=== PATIENT | female | born 1955 | race Caucasian/White ===

== ENCOUNTER 2016-12-21 11:47 | Day surgery (SDC) | payer BC, OTHER ==
[2016-12-18 15:27] VITALS: BMI 20.9
[2016-12-21] MEDS ORDERED: MIDAZOLAM HCL 2 MG/2 ML SINGLE DOSE VIAL ONE ×2 (12:24→13:24)
[2016-12-21] MEDS ORDERED: BUPIVACAINE HCL/PF 0.5% (5MG/ML) 10 ML VIAL ONE (12:56)
[2016-12-21] MEDS ORDERED: ONDANSETRON 4 MG/2 ML VIAL IVPUSH PRN (13:02)
[2016-12-21] MEDS ORDERED: oxyCODONE HCL 5 MG TABLET PO PRN (13:02)
[2016-12-21] MEDS ORDERED: ceFAZolin SODIUM 1 GM VIAL IVPB ONE (13:13)
[2016-12-21] MEDS ORDERED: LACTATED RINGERS SOLUTION 1,000 ML IV SCH (13:15)
[2016-12-21] MEDS ORDERED: ceFAZolin SODIUM 1 GM VIAL ONE (13:19)
[2016-12-21] MEDS ORDERED: BUPIVACAINE HCL/PF 0.5% (5MG/ML) 10 ML VIAL IJ ONE (13:40)
[2016-12-21] MEDS ORDERED: LIDOCAINE HCL 0.5% EPINEPHRINE 1:200,000 50 ML VIAL IJ ONE (13:40)
[2016-12-21] MEDS ORDERED: PROPOFOL 20 ML ONE ×3 (13:41→14:30)
[2016-12-21 16:26] VITALS: TEMP 98.9
--- NOTE | 2016-12-21 17:09 | HP ---
Admitting History and Physical - Primary Care Physician PCP: Dani Coles (Panel Instrument Repairer) - Admission Chief Complaint: Painful toes [id number], 3rd and 4th History of Present Illness: Patient has painful hammertoes that limit ability to wear shoes and has asked for surgical correction to allow her feet to fit in shoes orther than crocks. History Source: Medical Record (Medical History deferred to PCP) - Past Medical History Musculoskeletal: Yes: Other (Bilateral 3rd and 4th toes are hammered, Hallux is abducted on the right and hammered on the left.) - Smoking History Smoking history: Current every day smoker Have you smoked in the past 12 months: Yes Aproximately how many cigarettes per day: 5 - Alcohol/Substance Use Hx Alcohol Use: No Home Medications - Allergies Allergies/Adverse Reactions: Allergies Allergy/AdvReac Type Severity Reaction Status Date / Time No Known Allergies Allergy Verified 12/18/16 15:26 - Home Medications Home Medications: Ambulatory Orders Duloxetine HCl [Cymbalta] 20 mg PO BID 12/18/16 Olanzapine [Zyprexa] 2.5 mg PO DAILY 12/18/16 Paroxetine HCl [Paxil] 30 mg PO BID 12/18/16 Physical Examination Vital Signs: Vital Signs Temperature 98.9 F 12/21/16 16:00 Pulse Rate 72 12/21/16 16:10 Respiratory Rate 18 12/21/16 16:10 Blood Pressure 138/59 12/21/16 16:10 O2 Sat by Pulse Oximetry (%) 100 12/21/16 15:45 Assessment/Plan Assessment Right bunion with hallux valgus Right 3rd and 4th hammertoes Left hallux hammertoe with extensor tendon contracture Left 3rd and 4th hammertoes Plan Right Barker Arthroplasty Right 3rd and 4th arthroplasty Left Hallux interphalangeal joint arthroplasty with extensor tendon lengthening Left 3rd and 4th toe arthroplasty
[2016-12-21 19:55] VITALS: BP 125/74; PULSE 78
--- NOTE | 2016-12-22 10:47 | OP ---
DATE OF OPERATION: 12/21/2016 SURGEON: Dani Coles DPM PREOPERATIVE DIAGNOSES: 1. Right bunion with hallux valgus. 2. Right third hammertoe. 3. Right fourth hammertoe. 4. Left hallux hammertoe. 5. 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 6. Left third hammertoe. 7. Left fourth hammertoe. PROCEDURES: 1. Right Barker bunionectomy. 2. Arthroplasty of the right third toe. 3. Arthroplasty of the right fourth toe. 4. Extensor tendon lengthening of the long extensor tendon, extensor hallucis longus. 5. Arthroplasty of the interphalangeal joint, right hallux. 6. Arthroplasty of the proximal interphalangeal joint, left third toe. 7. Arthroplasty of the left fourth toe proximal interphalangeal joint. DESCRIPTION OF PROCEDURE: Under fractional anesthesia and surgical scrub with Betadine scrub and solution x2, the patient was draped using sterile technique. An ankle tourniquet was inflated around the right ankle for 73 minutes. Inspection of the right foot showed the hallux valgus and hammertoes of the third and fourth. Using a number 15 blade, a linear longitudinal incision was made on the dorsal medial aspect of the right foot over the first metatarsophalangeal joint. The incision was deepened through fascia and retracted. The long extensor tendon was identified and lengthened by a Z-plasty. It was sutured with 4-0 Vicryl. A longitudinal capsular incision was made, and the joint capsule was reflected from the medial and lateral and dorsal surfaces of the first metatarsophalangeal joint. The base of the proximal phalanx of the hallux was resected using a bone-cutting saw at the flare and removed. The medial eminence of the first metatarsal head was resected in a similar fashion, and the bone was rasped smooth to avoid any sharp edges. The wound was irrigated with sterile saline, and then, medial and lateral joint capsules were cut into flaps, sutured to the plantar joint capsule, and the joint capsule was closed using 2-0 Vicryl suture to completely enclose the first metatarsal head and joint capsule. Then, the remaining joint capsule at the base of the proximal phalanx was sutured into the joint capsular apparatus using similar technique. The superficial fascia was reapproximated and closed with 3-0 Vicryl, and then, skin was reapproximated and closed using 4-0 nylon sutures. The hallux was restored to normal anatomic position. Continuing on the right foot, double semi-elliptical incisions were made on the dorsal aspect of the right third and fourth toes, longitudinal incisions. These incisions were deepened through fascia and retracted, and a tear-drop skin wedge was removed from each toe. The proximal interphalangeal joint was transversely incised, and extensor tendon and joint capsule were reflected from the joint. The head of the proximal phalanx was delivered into the wound in both toes and resected using bone-cutting forceps. The wounds were irrigated with sterile saline, and then, extensor tendon and joint capsules were reapproximated and sutured with 4-0 Vicryl suture. Skin was reapproximated and closed using 4-0 nylon simple interrupted sutures in both right third and fourth toes. The ankle tourniquet was deflated after 73 minutes of inflation, and the dry sterile dressing was applied to the right foot. Now, attention was directed to the left foot. Using a number 15 blade, the longitudinal incision was made on the dorsal aspect of the left hallux, and the skin and subcutaneous tissues were reflected, exposing a long extensor tendon and the flexed interphalangeal joint of the left hallux. Using a 15 blade, a Z-plasty lengthening was performed on the long extensor tendon, reducing the contracture of the extensor hallucis longus. Then, a transverse capsular incision was made at the joint in the hallux, and using a bone saw, the head of the proximal phalanx was resected from the left hallux. The wound was irrigated with sterile saline, and the joint capsule was reapproximated and sutured with 4-0 Vicryl. Then, subcutaneous tissues were reapproximated and closed in similar fashion, and skin, of course, was reapproximated and closed with 4-0 nylon sutures. Attention was then directed to the left third and fourth toes that are hammered. Double semi-elliptical incisions were made on the dorsal aspect of these toes, and these tear-drop incisions were deepened through fascia and skin wedges were removed. The proximal interphalangeal joints were transversely incised and the heads of the proximal phalanges were delivered into the wounds and they were resected using bone-cutting forceps. The wounds were irrigated with sterile saline, and then, the joint capsule and extensor tendons were repaired with 4-0 Vicryl. Skin was then reapproximated and closed with 4-0 nylon simple interrupted sutures in the left third and fourth toes. Dry sterile dressings were applied to the left foot as they were to the right. The patient tolerated the surgical procedure well and left the operating room stable, alert, awake, and in no pain. PETEY FISCHER/[id number]
--- NOTE | 2016-12-25 14:15 | PATH ---
Surgical Pathology Report Patient Name: NELLY JUAREZ [facility]. Rec. #: [id number] /Age/Gender: 1955 (Age: 61) / F Account: [id number] Location: [facility] SURGICAL Taken: 12/21/2016 Received: 12/24/2016 Reported: 12/25/2016 Physicians: Dani Coles M.D. Specimen(s) Received A: RIGHT BIG TOE BUNION AND JOINT B: RIGHT 3RD AND 4TH TOE BONE AND SOFT TISSUE C: LEFT FOOT BIG TOE JOINT D: LEFT 3RD AND 4TH TOE BONE AND SOFT TISSUE Clinical History Bunion, hammertoe, hallux malleus Final Diagnosis A. BONE, RIGHT BIG TOE BUNION AND JOINT, REMOVAL: BONE AND CARTILAGE WITH DEGENERATIVE CHANGES. B. BONE AND SOFT TISSUE, RIGHT THIRD AND FOURTH TOES, REMOVAL: BONE AND CARTILAGE WITH DEGENERATIVE CHANGES. HYPERKERATOTIC SKIN WITH DERMAL FIBROSIS. C. BONE, BIG TOE JOINT, LEFT FOOT, REMOVAL: BONE AND CARTILAGE WITH DEGENERATIVE CHANGES. D. BONE AND SOFT TISSUE, LEFT THIRD AND FOURTH TOES, REMOVAL: BONE AND CARTILAGE DEGENERATIVE CHANGES. HYPERKERATOTIC SKIN WITH DERMAL FIBROSIS. Electronically Signed Sid Hollis M.D. Gross Description A. Received in formalin labeled "right big toe bunion and joint" are 2 knutson, irregular portions of bone measuring 2.0 x 1.5 x 0.5 cm and 1.8 x 1.8 x 0.9 cm. [employer] Developer sections are submitted in one cassette, following decalcification. B. Received in formalin labeled "right third and fourth toe bone and soft tissue" are 2 knutson, irregular portions of bone averaging 1.1 x 0.7 x 0.5 cm. Also received within the same container are 2 knutson, elliptical, unoriented skin shaves averaging 1.7 x 0.6 cm. No focal lesions are identified. [employer] Developer sections are submitted in one cassette, following decalcification. C. Received in formalin labeled "left foot big toe joint" is a 1.5 x 1.1 x 1.0 cm knutson, irregular portion of bone. A sales and service representative section is submitted in one cassette, following decalcification. D. Received in formalin labeled "left third and fourth toe bone and soft tissue" are 2 knutson, irregular portions of bone averaging 1.0 x 0.7 x 0.5 cm. Also received within the same container are 2 knutson, elliptical, unoriented skin shaves averaging 2.2 x 0.6 cm. No focal lesions are identified. [employer] Developer sections are submitted in one cassette, following decalcification. 12/24/201612/24/2016
== END 2016-12-21 17:30 | disposition home or self-care (01) ==
LOC: JASU-SURG 11:47
PROVIDERS: ATTEND Podiatrist Foot Surgery
PROC: 0SRQ0JZ Replacement of Left Toe Phalangeal Joint with Synthetic Substitute, Open Approach (ICD-10-PCS; 2016-12-21)
PROC: 0L8W0ZZ Division of Left Foot Tendon, Open Approach (ICD-10-PCS; 2016-12-21)
PROC: 0L8V0ZZ Division of Right Foot Tendon, Open Approach (ICD-10-PCS; 2016-12-21)
PROC: 0QBQ0ZZ Excision of Right Toe Phalanx, Open Approach (ICD-10-PCS; principal; 2016-12-21 13:00)
DX: M20.21 Hallux rigidus, right foot (principal); M20.22 Hallux rigidus, left foot; M20.41 Other hammer toe(s) (acquired), right foot; M20.11 Hallux valgus (acquired), right foot; M21.611 Bunion of right foot
CPT/HCPCS: 73630-TC-LT; 73630-TC-RT; 88304-TC; 88311-TC; 94760